=== PATIENT | female | born 1980 | race Caucasian/White ===

== ENCOUNTER 2017-06-16 18:03 | Emergency (ER) | payer MEDICAID ==
[~2017-06-16] VITALS: Ht 152.4 cm; Wt 67.2 kg
[2017-06-16] MEDS ORDERED: PNV11TAB PO (18:05)
[2017-06-16] MEDS ORDERED: 0.9% SODIUM CHLORIDE 5 ML NEB SOLUTION NEB ONE (19:00)
[2017-06-16] MEDS ORDERED: ACETAMINOPHEN 500 MG TABLET PO ONE (21:00)
[2017-06-16 21:04] VITALS: BP 94/52
== END 2017-06-16 21:15 | disposition home or self-care (01) ==
LOC: EMS 18:06
DX: O26.892 Other specified pregnancy related conditions, second trimester (principal); J40 Bronchitis, not specified as acute or chronic; Z3A.16 16 weeks gestation of pregnancy
CPT/HCPCS: 94640; 99283